=== PATIENT | male | born 1970 | race Hispanic/Latino ===

== ENCOUNTER 2018-01-11 08:12 | Outpatient (CLI) | payer BC ==
--- NOTE | 2018-01-11 10:34 | RAD ---
LUMBAR SPINE TWO VIEWS: History: Low back pain. FINDINGS: Five lumbar type vertebrae. Pedicles are intact. Moderate osteophytosis throughout the vertebral bodi es and facets. Mild disc space narrowing at the L3-4 and L5-S1 levels. Vertebral body height and alig nment are maintained. IMPRESSION: Mild degenerative changes lumbar spine. No acute osseous abnormalities are demonstrated. POS: [facility]
--- NOTE | 2018-01-11 11:01 | MRI ---
MRI LUMBAR SPINE NONCONTRAST: History: Back injury. Low back pain with left leg radiculopathy. FINDINGS: Conus medullaris has a normal appearance. Vertebral body height and alignment are maintained. Bone ma rrow signal is within normal limits. T12-L1, L1-2, and L2-3: Disc hydration is maintained. Central canal and neural foramina are patent. L3-4: Desiccation of the disc. Disc space narrowing. Thecal sac and neural foramina are patent. L4-5: Osteophytosis of the facets. Central canal and neural foramina are patent. L5-S1: Desiccation of the disc. Mild posterior disc bulge. Degenerative changes with mild stenosis of the right neural foramen. Far left lateral disc protrusion encroaches upon the left L5 nerve root within the neural foramen. Th ere is also compression of the origin of the left S1 nerve root. IMPRESSION: 1. Left lateral disc protrusion at the lumbosacral junction, affecting the left L5 and S1 nerve roots . Clinical correlation regarding the left L5 and S1 dermatomes is required. 2. Otherwise, mild degenerative changes of the lumbar spine. POS: [facility]
== END 2018-01-11 08:13 | disposition home or self-care (01) ==
LOC: MRI 08:12
PROVIDERS: ATTEND Physical Medicine & Rehabilitation
DX: M54.32 Sciatica, left side (principal); M47.896 Other spondylosis, lumbar region; M51.27 Other intervertebral disc displacement, lumbosacral region
CPT/HCPCS: 72100; 72148

== ENCOUNTER 2018-12-14 09:12 | Outpatient (CLI) | payer BC ==
--- NOTE | 2018-12-14 11:59 | MRI ---
RIGHT SHOULDER MRI WITHOUT IV CONTRAST: HISTORY: Tear of right rotator cuff. M75.101, right shoulder pain with limited range of motion. FINDINGS: Multiplanar, multisequence MRI examination of the right shoulder is performed. AC joint arthrosis ch anges are noted with minimal downsloping of the anterior acromion. Fluid in the subacromial bursa. Full-thickness, somewhat irregular insertional tear of the supraspinatus tendon without significant r etraction. Undersurface and minimally delaminating tear of the infraspinatus tendon, extending to th e myotendinous junction region. Medial subluxation of the biceps tendon in the upper bicipital groov e, consistent with some biceps tendon daniel injury, with undersurface and delaminating tear of the s ubscapularis tendon, with some associated tendinopathy. Mild to moderate muscle volume loss of the s upraspinatus muscle. Abnormal signal and irregular appearance of the posterior-superior labrum, evid ence for a SLAP type tear. IMPRESSION: 1. Rotator cuff tears, as above. 2. Medial subluxation of the biceps tendon from the superior bicipital groove. 3. Abnormal appearance of the posterior-superior labrum. 4. Muscle volume loss of the supraspinatus muscle. POS: [facility]
== END 2018-12-14 09:13 | disposition home or self-care (01) ==
LOC: BICMRI 09:12
PROVIDERS: ATTEND Orthopaedic Surgery
DX: M75.101 Unspecified rotator cuff tear or rupture of right shoulder, not specified as traumatic (principal); S43.081A Other subluxation of right shoulder joint, initial encounter; S43.431A Superior glenoid labrum lesion of right shoulder, initial encounter

== ENCOUNTER 2020-08-08 20:25 | Emergency (ER) | payer OTHER, BC ==
[2020-08-08] MEDS ORDERED: Boostrix 0.5 ML (Tdap) VIAL ONE (21:13)
[2020-08-08] MEDS ORDERED: Rabies Vaccine Human 2.5 UNITS VIAL IM ONE (22:00)
[2020-08-08] MEDS ORDERED: Lidocaine 1% (PF) 30 ML VIAL ONE (22:13)
--- NOTE | 2020-08-08 22:29 | RAD ---
Exam: XR Tib Fib Lt Leg 2 View HISTORY: Injury to left lower extremity. Dogbite to left lower extremity. COMPARISON: None FINDINGS: There is a corticated osseous density inferior to the medial malleolus which may represent an accesso ry center of ossification versus a remote avulsion injury. No acute fracture or dislocation is seen involving the left tibia or fibula. No radiopaque foreign body is seen. There is a soft tissue defect seen involving the subcutaneous soft tissues lateral and posterior to the junction of the middle and lower one third left fibula related to laceration. Adjacent subcutaneous soft tissue swelling is seen. IMPRESSION: Laceration distal left lower extremity. No acute osseous abnormality is seen.
[2020-08-08] MEDS ORDERED: Bacitracin 1 PK ONE (23:33)
== END 2020-08-08 23:39 | disposition home or self-care (01) ==
LOC: EEVIPCON 20:25 → ERS 20:25
DX: S81.852A Open bite, left lower leg, initial encounter (principal); W54.0XXA Bitten by dog, initial encounter
CPT/HCPCS: 12001; 90376; 90471; 90472; 90675; 90715; 96372; J2001

== ENCOUNTER → 2020-08-11 | Day surgery (SDC) | payer BC | LOC: ER/OP 14:21 | PROVIDERS: ATTEND Emergency Medicine | DX: Z23 Encounter for immunization (principal) | CPT/HCPCS: 90471 ==

== ENCOUNTER → 2020-08-11 | Day surgery (SDC) | payer BC ==
[~2020-08-11] MED LIST: Rabies Vaccine Human 2.5 UNITS VIAL IM ONE
== END ==
LOC: ER/OP 13:08
DX: Z23 Encounter for immunization (principal)
CPT/HCPCS: 90675

== ENCOUNTER → 2020-08-15 | Day surgery (SDC) | payer BC | LOC: ER/OP 09:16 | DX: Z23 Encounter for immunization (principal) | CPT/HCPCS: 90471; 90675 ==

== ENCOUNTER 2021-02-20 21:32 | Emergency (ER) | payer BC, OTHER ==
[2021-02-20] MEDS ORDERED: Lidocaine 1% w/Epinephrine 1:100K 20 ML VIAL ONE (22:37)
[2021-02-21] MEDS ORDERED: Acetaminophen 500 MG TAB ONE
[2021-02-21] MEDS ORDERED: Boostrix 0.5 ML (Tdap) VIAL ONE (01:19)
[2021-02-21] MEDS ORDERED: Bacitracin 1 PK ONE (01:38)
== END 2021-02-21 01:57 | disposition home or self-care (01) ==
LOC: ERS 21:32
DX: S81.852A Open bite, left lower leg, initial encounter (principal); Z23 Encounter for immunization; W54.0XXA Bitten by dog, initial encounter
CPT/HCPCS: 12002; 90471; 90715

== ENCOUNTER 2021-03-25 09:30 | Outpatient (CLI) | payer BC | END 2021-03-25 09:31 | disposition home or self-care (01) | LOC: ULT 09:30 | PROVIDERS: ATTEND Nurse Practitioner Family | DX: R74.8 Abnormal levels of other serum enzymes (principal); R93.2 Abnormal findings on diagnostic imaging of liver and biliary tract | CPT/HCPCS: 76705 ==

== ENCOUNTER 2023-05-18 16:00 | Outpatient (CLI) | payer BC | END 2023-05-18 16:01 | disposition home or self-care (01) | LOC: SLEEPLAB 16:00 | PROVIDERS: ATTEND Nurse Practitioner Family | DX: G47.33 Obstructive sleep apnea (adult) (pediatric) (principal); F41.9 Anxiety disorder, unspecified; E11.9 Type 2 diabetes mellitus without complications; K21.9 Gastro-esophageal reflux disease without esophagitis; R53.83 Other fatigue; E66.9 Obesity, unspecified; R06.83 Snoring; G47.00 Insomnia, unspecified; R35.1 Nocturia; I10 Essential (primary) hypertension; Z68.35 Body mass index [BMI] 35.0-35.9, adult | CPT/HCPCS: 95800 ==